=== PATIENT | male | born 1955 | race Caucasian/White ===

== ENCOUNTER 2018-02-21 10:56 | Emergency (ER) | payer OTHER ==
[2018-02-21 11:11] VITALS: BMI 20.9
--- NOTE | 2018-02-21 12:32 | C.PDOC ---
History Of Present Illness Pt c/o rash. Started on left forearm, but now has scattered lesions elsewhere. Time Seen by Provider: 02/21/18 12:16 Chief Complaint (Nursing): Abnormal Skin Integrity History Per: Patient Onset/Duration Of Symptoms: Days (about 2 months) Current Symptoms Are (Timing): Worse Location Of Injury: Left: Forearm Quality Of Symptoms: Itching Severity: Moderate Additional History Per: Prior Records Past Medical History Reviewed: Historical Data, Nursing Documentation, Vital Signs Vital Signs: Last Vital Signs Temp 98.3 F 02/21/18 11:11 Pulse 80 02/21/18 11:11 Resp 20 02/21/18 11:11 BP 162/91 H 02/21/18 11:11 Pulse Ox 96 02/21/18 11:11 Family History: States: Unknown Family Hx - Social History Hx Tobacco Use: No Hx Alcohol Use: No Hx Substance Use: No - Immunization History Hx Tetanus Toxoid Vaccination: No Hx Influenza Vaccination: No Hx Pneumococcal Vaccination: No Review Of Systems Except As Marked, All Systems Reviewed And Found Negative. Constitutional: Negative for: Fever, Weakness Eyes: Negative for: Conjunctivae Inflammation ENT: Negative for: Throat Pain, Throat Swelling Respiratory: Negative for: Shortness of Breath Gastrointestinal: Negative for: Vomiting Skin: Positive for: Rash Neurological: Negative for: Weakness, Numbness Physical Exam - Physical Exam Appears: Non-toxic, No Acute Distress Skin: Warm, Rash (5 cm lesion on left forearm with yellow crust. Pt also has small lesions on face and upper chest.) Head: Atraumatic, Normacephalic Eye(s): bilateral: Normal Inspection, PERRL, EOMI Throat: Normal Neck: Normal ROM, Supple Cardiovascular: Rhythm Regular Respiratory: Normal Breath Sounds, No Accessory Muscle Use Extremity: Normal ROM, No Tenderness, No Swelling Neurological/Psych: Oriented x3, Normal Speech, Normal Motor, Normal Sensation ED Course And Treatment O2 Sat by Pulse Oximetry: 96 Pulse Ox Interpretation: Normal Medical Decision Making Medical Decision Making: Rash most like due to poison [place], however the one on the left forearm appears to have been infected (impetigo). Disposition Counseled Patient/Family Regarding: Diagnosis, Need For Followup, Rx Given - Disposition Referrals: [facility] [Outside] Disposition: HOME/ ROUTINE Disposition Time: 12:35 Condition: STABLE Additional Instructions: Follow up in the clinic within 1-2 weeks for further evaluation and treatment. Return to the ER if you develop fever, worsening of symptoms or if you have any other concerns. Prescriptions: Cephalexin [Keflex] 500 mg PO TID #30 capsule Hydrocortisone 1% Cream [Cortizone 1% Cream] 1 appl TP BID PRN #1 tube PRN Reason: Itching / Pruritus Instructions: Poison [place], Poison [place], Poison [place] (DC), Impetigo Print Language: INDONESIAN - Clinical Impression Clinical Impression: Rash
[2018-02-21 12:45] VITALS: BP 153/93; PULSE 67; RESP 18; TEMP 98; O2SAT 97
== END 2018-02-21 12:45 | disposition home or self-care (01) ==
LOC: C.ER 10:56
DX: R21 Rash and other nonspecific skin eruption (principal)